=== PATIENT | male | born 1960 | race Caucasian/White ===

== ENCOUNTER → 2016-04-12 | Outpatient (CLI) | payer MEDICARE, OTHER ==
[2016-04-12 14:34] LABS: ALBUMIN 3.8 g/dL (3.5-5.0); BLOOD UREA NITROGEN 15 mg/dL (7-20); CALCIUM 8.7 mg/dL (8.4-10.2); GLUCOSE 84 mg/dL (75-110)
[2016-04-12 14:35] LABS: APPEARANCE,URINE CLEAR; BILIRUBIN,URINE NEGATIVE (NEGATIVE); GLUCOSE, URINE NEGATIVE (NEGATIVE); KETONES,URINE NEGATIVE (NEGATIVE); LEUKOCYTE ESTERASE,URINE SMALL (NEGATIVE); NITRITE,URINE NEGATIVE (NEGATIVE); PROTEIN,URINE NEGATIVE (NEGATIVE); URINE SPECIFIC GRAVITY 1.005; UROBILINOGEN,URINE NEGATIVE mg/dL (<2.0)
[2016-04-12 14:44] LABS: ANION GAP 13 (5-19); CARBON DIOXIDE 28 mmol/L (22-30); CHLORIDE 96 mmol/L (98-107); POTASSIUM 4.6 mmol/L (3.6-5.0); SODIUM 136.6 mmol/L (137-145)
== END ==
LOC: OD 13:05
PROVIDERS: ATTEND Family Medicine
DX: R05 Cough (principal); R60.0 Localized edema; N30.00 Acute cystitis without hematuria
CPT/HCPCS: 36415; 71020; 80048; 81001; 82040; 87086; 87088; 87186

== ENCOUNTER → 2016-04-16 | Outpatient (CLI) | payer MEDICARE, OTHER | LOC: SP 14:51 | PROVIDERS: ATTEND Family Medicine | DX: R60.0 Localized edema (principal) | CPT/HCPCS: 93970 ==

== ENCOUNTER → 2016-05-29 | Outpatient (CLI) | payer MEDICARE, OTHER ==
[2016-05-29 16:11] LABS: ABSOLUTE BASOPHILS # (AUTO) 0.1 10^3/uL (0.0-0.2); ABSOLUTE EOSINOPHILS # (AUTO) 0.4 10^3/uL (0.0-0.6); ABSOLUTE LYMPHOCYTES (AUTO) 1.4 10^3/uL (0.5-4.7); ABSOLUTE MONOCYTES (AUTO) 0.6 10^3/uL (0.1-1.4); ABSOLUTE NEUT (AUTO) 4.3 10^3/uL (1.7-8.2); BASOPHILS % (AUTO) 1.5 % (0-2); EOSINOPHILS % (AUTO) 6.4 % (0-6); HEMATOCRIT 39.5 % (37.9-51.0); HEMOGLOBIN 13.3 g/dL (13.5-17.0); HGB HCT DIFFERENCE 0.4; LYMPHOCYTES % (AUTO) 20.8 % (13-45); MEAN CORPUSCULAR HEMOGLOBIN 29.6 pg (27.0-33.4); MEAN CORPUSCULAR HGB CONC 33.6 g/dL (32.0-36.0); MEAN CORPUSCULAR VOLUME 88 fl (80-97); MONOCYTES % (AUTO) 8.7 % (3-13); RED BLOOD COUNT 4.48 10^6/uL (4.35-5.55); RED CELL DISTRIBUTION WIDTH 14.4 % (11.5-14.0); SEGMENTED NEUTROPHILS % (AUTO) 62.6 % (42-78); WHITE BLOOD COUNT 6.9 10^3/uL (4.0-10.5)
== END ==
LOC: OD 14:32
PROVIDERS: ATTEND Family Medicine
DX: R60.0 Localized edema (principal); R05 Cough; N30.00 Acute cystitis without hematuria
CPT/HCPCS: 36415; 85025

== ENCOUNTER → 2016-06-07 | Day surgery (SDC) | payer MEDICARE, OTHER | LOC: RAD 12:19 → EDSTATUS 16:27 | PROVIDERS: ATTEND Orthopaedic Surgery | PROC: BQ0 Imaging, Non-Axial Lower Bones, Plain Radiography (ICD-10-PCS; principal; 2016-06-07) | DX: M23.307 Other meniscus derangements, unspecified meniscus, left knee (principal); M25.562 Pain in left knee; M25.561 Pain in right knee | CPT/HCPCS: 73580; 77002 ==

== ENCOUNTER → 2016-06-25 | Outpatient (CLI) | payer MEDICARE, OTHER ==
[2016-06-25 11:10] LABS: ABSOLUTE BASOPHILS # (AUTO) 0.1 10^3/uL (0.0-0.2); ABSOLUTE EOSINOPHILS # (AUTO) 0.2 10^3/uL (0.0-0.6); ABSOLUTE LYMPHOCYTES (AUTO) 1.5 10^3/uL (0.5-4.7); ABSOLUTE MONOCYTES (AUTO) 0.6 10^3/uL (0.1-1.4); ABSOLUTE NEUT (AUTO) 5.4 10^3/uL (1.7-8.2); EOSINOPHILS % (AUTO) 2.5 % (0-6); HEMATOCRIT 37.3 % (37.9-51.0); HEMOGLOBIN 12.4 g/dL (13.5-17.0); HGB HCT DIFFERENCE -0.1; MEAN CORPUSCULAR HEMOGLOBIN 29.2 pg (27.0-33.4); MEAN CORPUSCULAR HGB CONC 33.3 g/dL (32.0-36.0); MEAN CORPUSCULAR VOLUME 88 fl (80-97); MONOCYTES % (AUTO) 7.9 % (3-13); RED BLOOD COUNT 4.25 10^6/uL (4.35-5.55); RED CELL DISTRIBUTION WIDTH 15.1 % (11.5-14.0); SEGMENTED NEUTROPHILS % (AUTO) 69.6 % (42-78); WHITE BLOOD COUNT 7.8 10^3/uL (4.0-10.5)
[2016-06-25 11:32] LABS: ALANINE AMINOTRANSFERASE 39 U/L (21-72); ALBUMIN 4.2 g/dL (3.5-5.0); ALKALINE PHOSPHATASE 109 U/L (38-126); ANION GAP 10 (5-19); ASPARTATE AMINO TRANSFERASE 34 U/L (17-59); BILIRUBIN,DIRECT 0.1 mg/dL (0.0-0.4); BILIRUBIN,TOTAL 1.1 mg/dL (0.2-1.3); BLOOD UREA NITROGEN 20 mg/dL (7-20); CALCIUM 9.8 mg/dL (8.4-10.2); CARBON DIOXIDE 29 mmol/L (22-30); CHLORIDE 99 mmol/L (98-107); CHOLESTEROL 135.54 mg/dL (0-200); CREATININE RESULT 1.06 mg/dL (0.52-1.25); Direct HDL 68 mg/dL (>40); GLUCOSE 103 mg/dL (75-110); POTASSIUM 4.6 mmol/L (3.6-5.0); SODIUM 137.6 mmol/L (137-145); TRIGLYCERIDES 54 mg/dL (<150)
[2016-06-25 11:43] LABS: DIRECT LDL 50 mg/dL (<100)
== END ==
LOC: OD 09:59
PROVIDERS: ATTEND Family Medicine
DX: R73.9 Hyperglycemia, unspecified (principal); E78.5 Hyperlipidemia, unspecified; Z79.82 Long term (current) use of aspirin; Z79.899 Other long term (current) drug therapy
CPT/HCPCS: 36415; 80053; 80061; 83036; 84443; 85025

== ENCOUNTER → 2016-08-13 | Outpatient (CLI) | payer MEDICARE, OTHER | LOC: OD 15:43 | PROVIDERS: ATTEND Physician Assistant | DX: M25.551 Pain in right hip (principal) ==

== ENCOUNTER 2016-11-08 12:44 | Emergency (ER) | payer OTHER, MEDICARE ==
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
--- NOTE | 2016-11-08 13:12 | RADIOLOGY REPORT (SQ) ---
EXAM DESCRIPTION: CHEST SINGLE VIEW COMPLETED DATE/TIME: 11/08/2016 12:57 pm REASON FOR STUDY: chest pain COMPARISON: 04/12/2016 EXAM PARAMETERS: NUMBER OF VIEWS: One view. TECHNIQUE: Single frontal radiographic view of the chest acquired. RADIATION DOSE: NA LIMITATIONS: None. FINDINGS: LUNGS AND PLEURA: No opacities, masses or pneumothorax. No pleural effusion. MEDIASTINUM AND HILAR STRUCTURES: No masses. Contour normal. HEART AND VASCULAR STRUCTURES: Cardiomegaly without adalid CHF. There is mild pulmonary vascular ant estion. BONES: No acute findings. HARDWARE: Neural stimulator electrodes. OTHER: No other significant finding. IMPRESSION: Cardiomegaly with pulmonary vascular congestion but no adalid CHF. TECHNICAL DOCUMENTATION: JOB ID: [id number]
[2016-11-08 13:14] LABS: ABSOLUTE BASOPHILS # (AUTO) 0.1 10^3/uL (0.0-0.2); ABSOLUTE EOSINOPHILS # (AUTO) 0.3 10^3/uL (0.0-0.6); ABSOLUTE LYMPHOCYTES (AUTO) 1.2 10^3/uL (0.5-4.7); ABSOLUTE MONOCYTES (AUTO) 0.5 10^3/uL (0.1-1.4); ABSOLUTE NEUT (AUTO) 3.2 10^3/uL (1.7-8.2); BASOPHILS % (AUTO) 1.3 % (0-2); HEMATOCRIT 33.9 % (37.9-51.0); HEMOGLOBIN 11.6 g/dL (13.5-17.0); HGB HCT DIFFERENCE 0.9; LYMPHOCYTES % (AUTO) 23.1 % (13-45); MEAN CORPUSCULAR HEMOGLOBIN 30.7 pg (27.0-33.4); MEAN CORPUSCULAR HGB CONC 34.2 g/dL (32.0-36.0); MEAN CORPUSCULAR VOLUME 90 fl (80-97); MONOCYTES % (AUTO) 8.6 % (3-13); RED BLOOD COUNT 3.79 10^6/uL (4.35-5.55); RED CELL DISTRIBUTION WIDTH 14.5 % (11.5-14.0); WHITE BLOOD COUNT 5.3 10^3/uL (4.0-10.5)
[2016-11-08] MEDS ORDERED: DIPH/PERTUSS(ACELL)/TETANUS VAC/PF 0.5 ML SYR (>=10YO) IM ONE (13:17)
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
[2016-11-08 13:20] LABS: PROTHROMBIN TIME 12.3 SEC (11.4-15.4)
[2016-11-08 13:30] LABS: ALANINE AMINOTRANSFERASE 35 U/L (21-72); ALBUMIN 3.8 g/dL (3.5-5.0); ALKALINE PHOSPHATASE 132 U/L (38-126); ANION GAP 11 (5-19); ASPARTATE AMINO TRANSFERASE 33 U/L (17-59); BILIRUBIN,DIRECT 0.3 mg/dL (0.0-0.4); BILIRUBIN,TOTAL 0.4 mg/dL (0.2-1.3); BLOOD UREA NITROGEN 21 mg/dL (7-20); CARBON DIOXIDE 26 mmol/L (22-30); CHLORIDE 101 mmol/L (98-107); CREATININE RESULT 1.03 mg/dL (0.52-1.25); GLUCOSE 110 mg/dL (75-110); POTASSIUM 3.8 mmol/L (3.6-5.0); SODIUM 137.8 mmol/L (137-145); TOTAL PROTEIN 6.6 g/dL (6.3-8.2)
[2016-11-08 13:32] LABS: ALCOHOL < 10 mg/dL (NONE DETECTED)
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
--- NOTE | 2016-11-08 14:22 | RADIOLOGY REPORT (SQ) ---
EXAM DESCRIPTION: HAND RIGHT 3 VIEWS COMPLETED DATE/TIME: 11/08/2016 1:38 pm REASON FOR STUDY: right hand abrasions COMPARISON: None. EXAM PARAMETERS: NUMBER OF VIEWS: Three views. TECHNIQUE: AP, lateral and oblique radiographic images acquired of the right hand. LIMITATIONS: Bony detail obscured by overlying bandage. FINDINGS: MINERALIZATION: Normal. BONES: No acute fracture or dislocation. No worrisome bone lesions. JOINTS: No effusions. SOFT TISSUES: No soft tissue swelling. No foreign body. OTHER: No other significant finding. IMPRESSION: Limited evaluation due to overlying bandage. No definite evidence of fracture or foreig n body. TECHNICAL DOCUMENTATION: JOB ID: [id number] [employer]- All Rights Reserved
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
[2016-11-08] MEDS ORDERED: LIDOCAINE 1% INJ-PF (10 MG/ML) 30 ML SDV ONE (14:35)
[2016-11-08] MEDS ORDERED: HYDROMORPHONE HCL INJ/PF 2 MG/ML AMPULE IV ONE (15:35)
[2016-11-08 17:48] VITALS: BP 130/79
--- NOTE | 2016-11-09 08:24 | EKG REPORT ---
SEVERITY:- ABNORMAL ECG - SINUS RHYTHM NONSPECIFIC INTRAVENTRICULAR CONDUCTION DELAY : Confirmed by: Denzel Lemos MD 09-Nov-2016 08:23:01
== END 2016-11-08 17:48 | disposition home or self-care (01) ==
LOC: ER 12:44
PROC: 0HQFXZZ Repair Right Hand Skin, External Approach (ICD-10-PCS; principal; 2016-11-08)
DX: S06.0X9A Concussion with loss of consciousness of unspecified duration, initial encounter (principal); S20.219A Contusion of unspecified front wall of thorax, initial encounter; S61.412A Laceration without foreign body of left hand, initial encounter; R51 Headache; V89.2XXA Person injured in unspecified motor-vehicle accident, traffic, initial encounter; F31.9 Bipolar disorder, unspecified; I10 Essential (primary) hypertension; E66.01 Morbid (severe) obesity due to excess calories; M54.9 Dorsalgia, unspecified; G89.29 Other chronic pain; V87.7XXA Person injured in collision between other specified motor vehicles (traffic), initial encounter; F17.200 Nicotine dependence, unspecified, uncomplicated
CPT/HCPCS: 93005; 99291; 99292; 90471; 96374; 36415; 80307; 85025; 85610; 80053; 71010; 73130; 70450; 71260; 72125; 74177; 90715; 93010; 12001; J1170

== ENCOUNTER 2016-11-15 10:03 | Emergency (ER) | payer OTHER, MEDICARE ==
[2016-11-15 10:10] VITALS: BP 129/74
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
== END 2016-11-15 11:17 | disposition home or self-care (01) ==
LOC: ER 10:03
DX: S61.411D Laceration without foreign body of right hand, subsequent encounter (principal); V49.9XXD Car occupant (driver) (passenger) injured in unspecified traffic accident, subsequent encounter; I10 Essential (primary) hypertension; F17.200 Nicotine dependence, unspecified, uncomplicated; Z88.8 Allergy status to other drugs, medicaments and biological substances; Z88.2 Allergy status to sulfonamides; Z88.1 Allergy status to other antibiotic agents

== ENCOUNTER → 2017-03-04 | Outpatient (CLI) | payer OTHER, MEDICARE ==
[2017-03-04 12:34] LABS: ABSOLUTE BASOPHILS # (AUTO) 0.1 10^3/uL (0.0-0.2); ABSOLUTE EOSINOPHILS # (AUTO) 0.3 10^3/uL (0.0-0.6); ABSOLUTE LYMPHOCYTES (AUTO) 0.8 10^3/uL (0.5-4.7); ABSOLUTE MONOCYTES (AUTO) 0.5 10^3/uL (0.1-1.4); ABSOLUTE NEUT (AUTO) 5.3 10^3/uL (1.7-8.2); BASOPHILS % (AUTO) 1.1 % (0-2); EOSINOPHILS % (AUTO) 4.1 % (0-6); HEMATOCRIT 37.2 % (37.9-51.0); HEMOGLOBIN 12.4 g/dL (13.5-17.0); LYMPHOCYTES % (AUTO) 11.7 % (13-45); MEAN CORPUSCULAR HEMOGLOBIN 28.1 pg (27.0-33.4); MEAN CORPUSCULAR HGB CONC 33.4 g/dL (32.0-36.0); MEAN CORPUSCULAR VOLUME 84 fl (80-97); MONOCYTES % (AUTO) 6.9 % (3-13); RED BLOOD COUNT 4.41 10^6/uL (4.35-5.55); RED CELL DISTRIBUTION WIDTH 15.4 % (11.5-14.0); SEGMENTED NEUTROPHILS % (AUTO) 76.2 % (42-78); WHITE BLOOD COUNT 6.9 10^3/uL (4.0-10.5)
[2017-03-04 13:08] LABS: ALANINE AMINOTRANSFERASE 46 U/L (21-72); ALBUMIN 4.1 g/dL (3.5-5.0); ALKALINE PHOSPHATASE 145 U/L (38-126); ANION GAP 10 (5-19); ASPARTATE AMINO TRANSFERASE 46 U/L (17-59); BILIRUBIN,DIRECT 0.4 mg/dL (0.0-0.4); BILIRUBIN,TOTAL 0.9 mg/dL (0.2-1.3); BLOOD UREA NITROGEN 24 mg/dL (7-20); CALCIUM 9.2 mg/dL (8.4-10.2); CARBON DIOXIDE 29 mmol/L (22-30); CHLORIDE 99 mmol/L (98-107); CHOLESTEROL 169.68 mg/dL (0-200); CREATININE RESULT 1.18 mg/dL (0.52-1.25); Direct HDL 83 mg/dL (>40); GLUCOSE 113 mg/dL (75-110); POTASSIUM 4.7 mmol/L (3.6-5.0); SODIUM 137.7 mmol/L (137-145); TOTAL PROTEIN 6.8 g/dL (6.3-8.2); TRIGLYCERIDES 89 mg/dL (<150)
[2017-03-04 13:37] LABS: DIRECT LDL 84 mg/dL (<100)
[2017-03-05 14:36] LABS: ADD ON TESTING BLD IN LAB ACKNOWLEDGE
[2017-03-07 05:40] LABS: HEPATITIS C VIRUS AB 0.1 s/co ratio (0.0-0.9)
== END ==
LOC: OD 11:38
PROVIDERS: ATTEND Family Medicine
DX: Z12.5 Encounter for screening for malignant neoplasm of prostate (principal); Z11.59 Encounter for screening for other viral diseases; D64.9 Anemia, unspecified; R73.9 Hyperglycemia, unspecified; E78.5 Hyperlipidemia, unspecified; Z79.899 Other long term (current) drug therapy
CPT/HCPCS: 36415; 82607; 82728; 82746; 83540; 83550; 84443; 85025; 80053; 83036; 80061; 86803; 86804; G0103

== ENCOUNTER 2017-07-23 08:51 | Day surgery (SDC) | payer MEDICARE, OTHER ==
[2017-07-16 09:41] LABS: APPEARANCE,URINE CLEAR; BILIRUBIN,URINE NEGATIVE (NEGATIVE); COLOR,URINE COLORLESS; GLUCOSE, URINE NEGATIVE (NEGATIVE); KETONES,URINE NEGATIVE (NEGATIVE); LEUKOCYTE ESTERASE,URINE NEGATIVE (NEGATIVE); NITRITE,URINE NEGATIVE (NEGATIVE); PROTEIN,URINE NEGATIVE (NEGATIVE); URINE SPECIFIC GRAVITY 1.004; UROBILINOGEN,URINE NEGATIVE mg/dL (<2.0)
[2017-07-16 10:37] LABS: HEMATOCRIT 40.4 % (37.9-51.0); HEMOGLOBIN 13.4 g/dL (13.5-17.0); MEAN CORPUSCULAR HEMOGLOBIN 28.8 pg (27.0-33.4); MEAN CORPUSCULAR HGB CONC 33.2 g/dL (32.0-36.0); MEAN CORPUSCULAR VOLUME 87 fl (80-97); PLATELET COUNT 223 10^3/uL (150-450); RED BLOOD COUNT 4.65 10^6/uL (4.35-5.55); RED CELL DISTRIBUTION WIDTH 16.3 % (11.5-14.0); WHITE BLOOD COUNT 8.2 10^3/uL (4.0-10.5)
[2017-07-16 10:42] LABS: PROTHROMBIN TIME 12.6 SEC (11.4-15.4)
[2017-07-16 10:43] LABS: PARTIAL THROMBOPLASTIN TIME 28.6 SEC (23.5-35.8)
--- NOTE | 2017-07-16 10:47 | RADIOLOGY REPORT (SQ) ---
EXAM DESCRIPTION: CHEST PA/LATERAL COMPLETED DATE/TIME: 07/16/2017 10:30 am REASON FOR STUDY: PRE OP COMPARISON: Chest films 11/08/2016, 04/12/2016, 07/27/2015 CT chest 11/08/2016 EXAM PARAMETERS: NUMBER OF VIEWS: two views TECHNIQUE: Digital Frontal and Lateral radiographic views of the chest acquired. RADIATION DOSE: NA LIMITATIONS: none FINDINGS: LUNGS AND PLEURA: No opacities, masses or pneumothorax. No pleural effusion. MEDIASTINUM AND HILAR STRUCTURES: No masses or contour abnormalities. Retrocardiac hiatal hernia HEART AND VASCULAR STRUCTURES: Heart normal size. No evidence for failure. BONES: No acute findings. HARDWARE: Neurostimulator electrodes are seen over the mid thoracic spinal canal OTHER: No other significant finding. IMPRESSION: No acute findings TECHNICAL DOCUMENTATION: JOB ID: [id number]- All Rights Reserved Reading location - IP/workstation name: [email or web address]
--- NOTE | 2017-07-16 13:01 | EKG REPORT ---
SEVERITY:- NORMAL ECG - SINUS RHYTHM : Confirmed by: Denzel Lemos MD 16-Jul-2017 13:01:02
[~2017-07-23 08:51] MED LIST: CEFAZOLIN 1 GM/D5W RTU 1 GM/50 ML RTUPB IV PRN; LACTATED RINGERS 1000 ML IV PRN; LIDOCAINE 0.5% INJ-PF (5 MG/ML) 50 ML SDV SUBCUT PRN
[2017-07-23] MEDS ORDERED: ALBUTEROL SULFATE 0.083% NEB 2.5 MG/3 ML AMPUL NEB ONE (09:25)
[2017-07-23] MEDS ORDERED: FAMOTIDINE INJ/PF 20 MG/2 ML SDV IV ONE (09:42)
[2017-07-23] MEDS ORDERED: METOCLOPRAMIDE HCL INJ/PF 10 MG/2 ML SDV ONE (09:43)
[2017-07-23] MEDS ORDERED: SODIUM BICARBONATE 8.4% INJ 50 MEQ/50 ML DISP.SYRIN ONE (09:46)
[2017-07-23] MEDS ORDERED: LIDOCAINE 1% INJ-PF (10 MG/ML) 30 ML SDV ONE ×2 (09:46→12:20)
[2017-07-23] MEDS ORDERED: BUPIVACAINE HCL 0.5%-EPI 1:200000 INJ/PF 30 ML VIAL ONE ×2 (09:46→12:47)
[2017-07-23] MEDS ORDERED: MIDAZOLAM 2 MG/2 ML INJ ONE (11:27)
[2017-07-23] MEDS ORDERED: PROPOFOL INJ 200 MG/20 ML VIAL IV ONE ×2 (11:28→12:24)
[2017-07-23] MEDS ORDERED: DEXMEDETOMIDINE INJ 80 MCG/20 ML VIAL IV ONE (12:58)
[2017-07-23] MEDS ORDERED: CEFAZOLIN INJ 1 GM VIAL ONE (13:50)
[2017-07-23] MEDS ORDERED: OXYCODONE-ACETAMINOPHEN 5-325 MG TABLET PO PRN (14:11)
--- NOTE | 2017-07-23 14:35 | OPERATIVE REPORT E ---
Operative Report NAME: SCOTT SHEA : 1960 AGE: 56Y DATE OF SURGERY: 07/23/2017 ROOM: Spinal cord stimulator revision, removal of old system, implantation of new system. PREOPERATIVE DIAGNOSIS: Nonfunctioning spinal cord stimulator for chronic lumbar radiculopathy. POSTOPERATIVE DIAGNOSIS: Nonfunctioning spinal cord stimulator for chronic lumbar radiculopathy. OPERATION: 1. Removal, prior Epidural Nerve Stimulation spinal cord stimulator system and replacement with Medtronic Dual Lead with *------*. SURGEON: DENNISE BLUE M.D. REPRODUCTION PRODUCTION MANAGER: DR. Wilfredo Montoya ANESTHESIA: Monitored anesthesia care. COMPLICATIONS: None. PROCEDURE DETAIL: After obtaining informed consent, I advised the patient of all the risks and benefits including serious neurological injury, bleeding, infection, spinal fluid leak, allergic reaction, paralysis, nerve injury, , failure to remove the device, and failure to obtain satisfactory relief. He was taken to the operating room and placed comfortably in the prone position. MAC anesthesia was administered. After application of monitoring, he was then prepped with Chloraprep x2 and then draped. After appropriate waiting and drying time, he was evaluated under fluoroscopy. The prior midline incision was marked, the prior left buttock incision was marked, and a new right buttock incision site was marked, and adequate space was found at L1-2 for placement. The skin over both were premarked. The buttock incision for prior battery site on the left and the midline marked with previous scar. Both anesthetized with 1% lidocaine with bicarb followed by 0.25% ropivacaine with epinephrine. Beginning on the left buttock pocket, dissection was done down with removal of the battery without difficulty. It was then closed with a running suture and angel after copious irrigation. Starting with the premarked midline incision, sharp and blunt dissection was performed down to the fascia, looking for the anchors and the prior leads which were identified and removed intact, leads intact and anchors. A 14-gauge Tuohy needle was then placed using a paramedian approach on the left into the L1-2 interspace. Loss of resistance with saline technique was utilized beginning with the first needle. The electrode was advanced under fluoroscopic guidance to the top of T9 being positioned in the midline. The second lead was placed through a second needle using the same technique of loss of resistance using the right paramedian approach on the right side. Final views were taken and initially showed satisfactory placement. The leads were then tested and appropriate stimulation found after discussion with the patient. Once again, the leads were then secured using pursestrings with anchors in place. The anchors were then sutured in place. The needles were removed sequentially, the pursestrings were secured, and the anchor was placed and secured as well. While lead positioning was occurring, Dr. Wilfredo Montoya was assisting me in creating the pocket for the new pulse generator. As soon as the pocket was made, proper hemostasis was confirmed. During dissection, the *------* nerve was identified and spared. After an appropriate pocket was created for the pulse generator, the skin between the tunneling and the pocket was anesthetized with 1% lidocaine and a standard tunneling tool was then used. Both incision sites were felt to be satisfactory and proper hemostasis was confirmed. After appropriate irrigation, the wires were easily placed in the midline and stitched to the pocket and connected to the pulse generator which was then tested and appropriate communication was made. All connections were secure. The generator was then placed in the pocket and assessed and found to be satisfactory. The incision was again checked via fluoroscopy in both lateral and AP views. The wounds were then copiously irrigated. The areas were then closed with interrupted vertical mattress sutures using 3-0 Vicryl. Angel were used in the midline and on both buttock sites. Tape and Dermabond were also used. OpSite dressings were then placed over the tape. The patient was then taken to the PACU for further postoperative care and monitoring. DICTATING PHYSICIAN: DENNISE BLUE M.D. [id number] PHY#: [id number] ID: [id number] JOB#: [id number] ACCT: [id number] cc:DENNISE BLUE M.D. >
[2017-07-23] MEDS ORDERED: KETOROLAC TROMETHAMINE INJ/PF 30 MG/1 ML SDV ONE (14:39)
--- NOTE | 2017-07-23 15:36 | RADIOLOGY REPORT (SQ) ---
EXAM DESCRIPTION: NO CHG FLUORO; THORACOLUMBAR SPINE AP/LAT COMPLETED DATE/TIME: 07/23/2017 3:21 pm REASON FOR STUDY: SPINAL STIMULATOR ASST WITH FLUORO IN OR COMPARISON: None. FLUOROSCOPY TIME: 5.4 minutes 21 Images saved to PACS LIMITATIONS: None. PROCEDURE: Placement of neural stimulator electrodes FINDINGS: Images obtained with fluoro document the placement of neurostimulator electrodes in the mi d to lower thoracic spine. IMPRESSION: Neurostimulator electrode placement. COMMENT: PQRS 6045F: Fluoroscopy time of the procedure is documented in the report. TECHNICAL DOCUMENTATION: JOB ID: [id number] [employer]- All Rights Reserved Reading location - IP/workstation name: [email or web address]
--- NOTE | 2017-07-23 15:36 | RADIOLOGY REPORT (SQ) ---
EXAM DESCRIPTION: NO CHG FLUORO; THORACOLUMBAR SPINE AP/LAT COMPLETED DATE/TIME: 07/23/2017 3:21 pm REASON FOR STUDY: SPINAL STIMULATOR ASST WITH FLUORO IN OR COMPARISON: None. FLUOROSCOPY TIME: 5.4 minutes 21 Images saved to PACS LIMITATIONS: None. PROCEDURE: Placement of neural stimulator electrodes FINDINGS: Images obtained with fluoro document the placement of neurostimulator electrodes in the mi d to lower thoracic spine. IMPRESSION: Neurostimulator electrode placement. COMMENT: PQRS 6045F: Fluoroscopy time of the procedure is documented in the report. TECHNICAL DOCUMENTATION: JOB ID: [id number] [employer]- All Rights Reserved Reading location - IP/workstation name: [email or web address]
[2017-07-23 16:16] VITALS: BP 117/72
== END 2017-07-23 15:45 | disposition home or self-care (01) ==
LOC: OROUT 08:51
PROVIDERS: ATTEND Student in an Organized Health Care Education/Training Program
DX: M54.17 Radiculopathy, lumbosacral region (principal); I10 Essential (primary) hypertension; M76.899 Other specified enthesopathies of unspecified lower limb, excluding foot; M25.511 Pain in right shoulder; M25.551 Pain in right hip; M25.512 Pain in left shoulder; E66.8 Other obesity; F39 Unspecified mood [affective] disorder; F45.42 Pain disorder with related psychological factors; M79.1 Myalgia; G89.4 Chronic pain syndrome; G47.33 Obstructive sleep apnea (adult) (pediatric); J45.909 Unspecified asthma, uncomplicated; Z79.01 Long term (current) use of anticoagulants; Z79.1 Long term (current) use of non-steroidal anti-inflammatories (NSAID); Z79.899 Other long term (current) drug therapy; Z79.51 Long term (current) use of inhaled steroids; Z79.891 Long term (current) use of opiate analgesic; Z86.73 Personal history of transient ischemic attack (TIA), and cerebral infarction without residual deficits; Z68.38 Body mass index [BMI] 38.0-38.9, adult
CPT/HCPCS: 63650; 63685; C1820; 1936; 36415; 71046; 72080; 81001; 84132; 85027; 85610; 85730; 93005; 93010; 94640; C1778; J0690; J1885; J2250; J2704; J2765; J3490; S0028

== ENCOUNTER → 2017-10-04 | Outpatient (CLI) | payer MEDICARE, OTHER | LOC: OD 10:54 | PROVIDERS: ATTEND Urology | DX: N52.9 Male erectile dysfunction, unspecified (principal) | CPT/HCPCS: 36415; 84402; 84403 ==

== ENCOUNTER 2017-10-28 05:12 | Day surgery (SDC) | payer MEDICARE, OTHER ==
[2017-10-25 12:53] LABS: HEMATOCRIT 35.6 % (37.9-51.0); HEMOGLOBIN 12.1 g/dL (13.5-17.0); MEAN CORPUSCULAR HEMOGLOBIN 30.9 pg (27.0-33.4); MEAN CORPUSCULAR HGB CONC 34.1 g/dL (32.0-36.0); MEAN CORPUSCULAR VOLUME 91 fl (80-97); PLATELET COUNT 182 10^3/uL (150-450); RED BLOOD COUNT 3.92 10^6/uL (4.35-5.55); RED CELL DISTRIBUTION WIDTH 14.9 % (11.5-14.0); WHITE BLOOD COUNT 7.2 10^3/uL (4.0-10.5)
[2017-10-25 13:09] LABS: ANION GAP 12 (5-19); BLOOD UREA NITROGEN 20 mg/dL (7-20); CALCIUM 9.2 mg/dL (8.4-10.2); CARBON DIOXIDE 29 mmol/L (22-30); CHLORIDE 98 mmol/L (98-107); GLUCOSE 77 mg/dL (75-110); POTASSIUM 4.2 mmol/L (3.6-5.0); SODIUM 138.8 mmol/L (137-145)
[2017-10-25 13:38] LABS: ERYTHROCYTE SEDIMENTATION RATE 35 mm/hr (0-20)
--- NOTE | 2017-10-25 22:15 | EKG REPORT ---
SEVERITY:- NORMAL ECG - SINUS RHYTHM : Confirmed by: Viktoriya Soni 25-Oct-2017 22:14:55
[~2017-10-28 05:12] MED LIST changes: -CEFAZOLIN 1 GM/D5W RTU 1 GM/50 ML RTUPB IV PRN; +CEFAZOLIN 2 GM/D5W RTU 2 GM/50 ML RTUPB IV PRN
--- NOTE | 2017-10-28 06:44 | RADIOLOGY REPORT (SQ) ---
Chest single view on 10/28/2017 at 5:48 AM CLINICAL INDICATION: Preop left ankle fracture fixation COMPARISON: 07/16/2017 FINDINGS: Mild cardiomegaly is noted. Stimulator leads overlie the lower thoracic spine. The lungs are clear. Hilar and mediastinal contours are within normal limits. Pulmonary vascularity is within normal limits. IMPRESSION: No acute disease.
[2017-10-28] MEDS ORDERED: LIDOCAINE 2% INJ-PF (20 MG/ML) 10 ML AMPUL ONE (07:00)
[2017-10-28] MEDS ORDERED: MIDAZOLAM 2 MG/2 ML INJ ONE (07:00)
[2017-10-28] MEDS ORDERED: ONDANSETRON HCL INJ/PF 4 MG/2 ML SDV ONE (07:00)
[2017-10-28] MEDS ORDERED: DEXAMETHASONE SOD PHOSPHATE INJ 4 MG/1 ML VIAL ONE (07:00)
[2017-10-28] MEDS ORDERED: FENTANYL CITRATE INJ/PF 100 MCG/2 ML AMPUL ONE (07:00)
[2017-10-28] MEDS ORDERED: PROPOFOL INJ 200 MG/20 ML VIAL IV ONE (07:01)
[2017-10-28] MEDS ORDERED: ACETAMINOPHEN 1,000 MG/100 ML RTUPB IV ONE (07:01)
[2017-10-28] MEDS ORDERED: MORPHINE SULFATE 10 MG/ML INJ ONE (07:01)
[2017-10-28] MEDS ORDERED: BUPIVACAINE HCL 0.25% /EPINEPHRINE INJ/PF 30 ML SDV ONE (07:31)
[2017-10-28] MEDS ORDERED: MEPERIDINE HCL/PF INJ 25 MG/1 ML DISP.SYRIN IV PRN (08:02)
[2017-10-28] MEDS ORDERED: MORPHINE SULFATE 10 MG/ML INJ IV PRN (08:02)
[2017-10-28] MEDS ORDERED: ONDANSETRON HCL INJ/PF 4 MG/2 ML SDV IV PRN (08:02)
[2017-10-28] MEDS ORDERED: DIPHENHYDRAMINE HCL 50 MG/ML VIAL IV PRN (08:02)
[2017-10-28] MEDS ORDERED: OXYCODONE-ACETAMINOPHEN 5-325 MG TABLET PO PRN ×2 (08:02)
[2017-10-28] MEDS ORDERED: FENTANYL CITRATE INJ/PF 100 MCG/2 ML AMPUL IV PRN ×3 (08:02)
[2017-10-28] MEDS ORDERED: PROMETHAZINE HCL INJ 25 MG/1 ML VIAL IV PRN ×2 (08:02)
--- NOTE | 2017-10-28 08:17 | Discharge Summary ---
Discharge Summary (SDC) - Discharge Final Diagnosis: Left lateral malleolus fracture Date of Surgery: 10/28/17 Discharge Date: 10/28/17 Condition: Good Treatment or Instructions: Touchdown weightbearing left lower extremity Prescriptions: Oxycodone HCl [Oxaydo] 5 mg PO Q6 PRN #40 tablet.orl PRN Reason: Referrals: LUCIANO BIANCHI MD [Primary Care Provider] - Discharge Diet: As Tolerated, Regular Respiratory Treatments at Home: Deep Breathing/Coughing, Incentive Spirometer Discharge Activity: Other - Touchdown weightbearing left lower extremity Home Care Assistance: None Needed Report the Following to Your Physician Immediately: Shortness of Breath, Fever over 101 Degrees, Drainage-Foul Smelling
--- NOTE | 2017-10-28 08:18 | Operative Report ---
Operative Report DATE OF SURGERY: 10/28/17 PREOPERATIVE DIAGNOSIS: Left lateral malleolus fracture OPERATION: Open reduction internal fixation left lateral malleolus fracture SURGEON: MARCELA KITCHEN ANESTHESIA: GA ESTIMATED BLOOD LOSS: 25 PROCEDURE: With the patient supine on the operative table the left lower extremities prepped and draped in a sterile fashion. It is elevated for exsanguination tourniquet inflated 280 torr. Longitudinal incisions made over the distal fibula and sharp dissection was carried incision through the periosteum. The periosteum was elevated and the underlying fracture was easily identified. Its reduced under direct visualization and reduction was checked with fluoroscopy in both directions. Subsequently Dewitt titanium distal fibular 6-hole plate is applied to the lateral surface of the fibula and secured with 4 screws proximally and 4 screws distally. The fracture reduction and the hardware placement checked fluoroscopically and felt to be adequate. The tourniquet is deflated. Hemostasis obtained with electrocautery. The wound is irrigated with bulb lavage. Subsequent closure was interrupted Vicryl followed by wood. A sterile compressive dressing and a Cam walker applied and the patient's return to PACU in satisfactory condition.
[2017-10-28] MEDS: HYDROMORPHONE HCL INJ/PF 2 MG/ML AMPULE ONE ×2 (08:31→08:55)
[2017-10-28] MEDS ORDERED: SUCCINYLCHOLINE CHLORIDE INJ 200 MG/10 ML VIAL ONE (10:22)
[2017-10-28 11:34] VITALS: BP 136/84
== END 2017-10-28 11:00 | disposition home or self-care (01) ==
LOC: OROUT 05:12
PROVIDERS: ATTEND Orthopaedic Surgery
DX: S82.62XA Displaced fracture of lateral malleolus of left fibula, initial encounter for closed fracture (principal); X58.XXXA Exposure to other specified factors, initial encounter; I10 Essential (primary) hypertension; E66.9 Obesity, unspecified; E88.81 Metabolic syndrome and other insulin resistance; Z87.891 Personal history of nicotine dependence; Z88.8 Allergy status to other drugs, medicaments and biological substances; Z79.899 Other long term (current) drug therapy; Z68.38 Body mass index [BMI] 38.0-38.9, adult; I69.354 Hemiplegia and hemiparesis following cerebral infarction affecting left non-dominant side; I69.328 Other speech and language deficits following cerebral infarction
CPT/HCPCS: 93005; 36415 ×2; 84132; 85027; 85652; 80048; 73600; 71045; 93010; 27792; C1713 ×6; J2250; J3490 ×2; J1100; J3010; J2270; A9270; J1170; J0330; J2405; J2704; J0690; J0131; 01480

== ENCOUNTER 2017-11-24 20:24 | Emergency (ER) | payer MEDICARE, OTHER ==
[2017-11-24] MEDS ORDERED: CEPHALEXIN 500 MG CAPSULE PO ONE (20:58)
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
[2017-11-24 21:23] VITALS: BP 130/88
== END 2017-11-24 21:19 | disposition home or self-care (01) ==
LOC: ER 20:24
DX: T81.31XA Disruption of external operation (surgical) wound, not elsewhere classified, initial encounter (principal); Y83.8 Other surgical procedures as the cause of abnormal reaction of the patient, or of later complication, without mention of misadventure at the time of the procedure; L03.116 Cellulitis of left lower limb; I10 Essential (primary) hypertension; I69.954 Hemiplegia and hemiparesis following unspecified cerebrovascular disease affecting left non-dominant side; Z87.891 Personal history of nicotine dependence; Z86.14 Personal history of Methicillin resistant Staphylococcus aureus infection; Z88.2 Allergy status to sulfonamides
CPT/HCPCS: 99283; A9270

== ENCOUNTER → 2018-02-24 | Outpatient (CLI) | payer MEDICARE, OTHER ==
[2018-02-24 16:53] LABS: ABSOLUTE BASOPHILS # (AUTO) 0.1 10^3/uL (0.0-0.2); ABSOLUTE EOSINOPHILS # (AUTO) 0.3 10^3/uL (0.0-0.6); ABSOLUTE LYMPHOCYTES (AUTO) 1.2 10^3/uL (0.5-4.7); ABSOLUTE MONOCYTES (AUTO) 0.6 10^3/uL (0.1-1.4); ABSOLUTE NEUT (AUTO) 3.4 10^3/uL (1.7-8.2); BASOPHILS % (AUTO) 1.3 % (0-2); HEMOGLOBIN 12.1 g/dL (13.5-17.0); MEAN CORPUSCULAR HEMOGLOBIN 29.5 pg (27.0-33.4); MEAN CORPUSCULAR HGB CONC 33.7 g/dL (32.0-36.0); MEAN CORPUSCULAR VOLUME 88 fl (80-97); MONOCYTES % (AUTO) 10.5 % (3-13); PLATELET COUNT 194 10^3/uL (150-450); RED CELL DISTRIBUTION WIDTH 15.7 % (11.5-14.0); SEGMENTED NEUTROPHILS % (AUTO) 61.2 % (42-78); TOTAL CELLS COUNTED % (AUTO) 100 %; WHITE BLOOD COUNT 5.5 10^3/uL (4.0-10.5)
[2018-02-24 17:45] LABS: ERYTHROCYTE SEDIMENTATION RATE 26 mm/hr (0-20)
== END ==
LOC: OD 15:28
PROVIDERS: ATTEND Pain Medicine Interventional Pain Medicine
DX: M06.89 Other specified rheumatoid arthritis, multiple sites (principal)
CPT/HCPCS: 36415; 85025; 85652; 86140; 86430

== ENCOUNTER → 2018-04-23 | Outpatient (CLI) | payer MEDICARE, OTHER ==
[2018-04-23 17:22] LABS: ANION GAP 7 (5-19); BLOOD UREA NITROGEN 29 mg/dL (7-20); CALCIUM 9.4 mg/dL (8.4-10.2); CARBON DIOXIDE 30 mmol/L (22-30); CHLORIDE 99 mmol/L (98-107); GLUCOSE 104 mg/dL (75-110); POTASSIUM 4.2 mmol/L (3.6-5.0); SODIUM 135.5 mmol/L (137-145)
== END ==
LOC: OD 15:43
PROVIDERS: ATTEND Family Medicine
DX: N40.1 Benign prostatic hyperplasia with lower urinary tract symptoms (principal); Z12.5 Encounter for screening for malignant neoplasm of prostate; R60.0 Localized edema
CPT/HCPCS: 36415; 80048; 84153

== ENCOUNTER → 2018-05-21 | Outpatient (CLI) | payer MEDICARE, OTHER ==
[2018-05-21 12:25] LABS: ANION GAP 9 (5-19); BLOOD UREA NITROGEN 26 mg/dL (7-20); CALCIUM 9.4 mg/dL (8.4-10.2); CARBON DIOXIDE 30 mmol/L (22-30); CHLORIDE 99 mmol/L (98-107); GLUCOSE 144 mg/dL (75-110); POTASSIUM 4.6 mmol/L (3.6-5.0)
== END ==
LOC: OD 10:58
PROVIDERS: ATTEND Family Medicine
DX: R76.0 Raised antibody titer (principal); R60.0 Localized edema
CPT/HCPCS: 36415; 80048; 86038

== ENCOUNTER → 2019-03-16 | Outpatient (CLI) | payer MEDICARE, OTHER ==
--- NOTE | 2019-03-17 08:54 | RADIOLOGY REPORT (SQ) ---
EXAM DESCRIPTION: U/S EXTREMITY NONVASCULAR LTD COMPLETED DATE/TIME: 03/16/2019 5:34 pm REASON FOR STUDY: SOFT TISSUE MASS (R22.31) R22.31 LOCALIZED SWELLING, MASS AND LUMP, RIGHT UPPER L IMB COMPARISON: None. TECHNIQUE: Dynamic and static grayscale images acquired of the localized site of clinical concern an d recorded on PACS. Additional selected color Doppler and spectral images recorded. SITE OF CONCERN: Right biceps area LIMITATIONS: None. FINDINGS: SKIN AND SUBCUTANEOUS TISSUES: No masses. No fluid collections. No edema. No foreign elizabeth s. DEEP SOFT TISSUES/MUSCLES: No masses. No fluid collections. No edema. VASCULAR: Palpable abnormality corresponds to a prominent vein along the right biceps. No evidence i ntraluminal clot. OTHER: No other significant finding. IMPRESSION: Palpable abnormality corresponds to a prominent vein along the right biceps, likely ceph alic. TECHNICAL DOCUMENTATION: JOB ID: [id number] [email or web address]- All Rights Reserved Reading location - IP/workstation name: [email or web address]
== END ==
LOC: RAD 14:34
PROVIDERS: ATTEND Family Medicine
DX: R22.31 Localized swelling, mass and lump, right upper limb (principal)
CPT/HCPCS: 76882

== ENCOUNTER → 2019-07-02 | Outpatient (CLI) | payer MEDICARE, OTHER ==
--- NOTE | 2019-07-02 10:11 | RADIOLOGY REPORT (SQ) ---
EXAM DESCRIPTION: CHEST 2 VIEWS COMPLETED DATE/TIME: 07/02/2019 9:55 am REASON FOR STUDY: J15.212 PNEUMONIA DUE TO METHICILLIN RESISTANT STAPHYLOCOCCUS AUREUS COMPARISON: 04/12/2016 EXAM PARAMETERS: NUMBER OF VIEWS: two views TECHNIQUE: Digital Frontal and Lateral radiographic views of the chest acquired. RADIATION DOSE: NA LIMITATIONS: none FINDINGS: LUNGS AND PLEURA: No opacities, masses or pneumothorax. No pleural effusion. MEDIASTINUM AND HILAR STRUCTURES: No masses or contour abnormalities. HEART AND VASCULAR STRUCTURES: Heart normal size. No evidence for failure. BONES: No acute findings. HARDWARE: None in the chest. Neurostimulator overlies the lower dorsal spine. OTHER: No other significant finding. IMPRESSION: NO ACUTE RADIOGRAPHIC FINDING IN THE CHEST. TECHNICAL DOCUMENTATION: JOB ID: [id number] [employer]- All Rights Reserved Reading location - IP/workstation name: [email or web address]
--- NOTE | 2019-07-02 10:45 | RADIOLOGY REPORT (SQ) ---
EXAM DESCRIPTION: CT FACIAL AREA WITHOUT COMPLETED DATE/TIME: 07/02/2019 9:50 am REASON FOR STUDY: J01.30 ACUTE SPHENOIDAL SINUSITIS, UNSPECIFIED J01.30 ACUTE SPHENOIDAL SINUSITIS, UNSPECIFIED COMPARISON: CT brain 02/09/2017 TECHNIQUE: Noncontrast scanning through the paranasal sinuses using bone algorithm. Reconstructed MPR images reviewed. All images stored on PACS. All CT scanners at this facility use dose modulation, iterative reconstruction, and/or weight based d osing when appropriate to reduce radiation dose to as low as reasonably achievable (ALARA). [facility]: Dose Right [facility]: CareDose [facility]: Dose Right [facility]: Teradose 4D [facility]: [employer] RADIATION DOSE: 45 mGy LIMITATIONS: None. FINDINGS: Right sinuses and drainage pathways: Post-surgical changes: None. Frontal sinus: Normal. Frontoethmoidal Recess: Normal. Anterior Ethmoid Sinuses: Normal. Posterior Ethmoid Sinuses: Normal. Sphenoid Sinus: Normal. Sphenoethmoidal Recess: Normal. Maxillary Sinus: Normal. Ostiomeatal Complex: Normal. Left Sinuses and Drainage Pathways: Post-Surgical Changes: None. Frontal Sinus: Normal. Frontoethmoidal Recess: Normal. Anterior Ethmoid Sinuses: Normal. Posterior Ethmoid Sinuses: Normal. Sphenoid Sinus: Normal. Sphenoethmoidal Recess: Normal. Maxillary Sinus: Circumferential mild mucous membrane thickening Ostiomeatal Complex: Narrowed by mucous membrane thickening on coronal images 24-28. Right Olfactory Fossa: No polyps. Left Olfactory Fossa: No polyps. Middle Turbinate Maritaz Bullosa: No. Paradoxical Middle Turbinate: No. Atelectatic Uncinated Process: No. Frontal Inga Cell Type I: No. Frontal Inga Cell Type II: No. Interfrontal Sinus Septal Cell: None. Supra-Orbital Ethmoid: None. Frontal Bullar Cell: None. Suprabullar Bullar Cell: None. Sphenoethmoidal (Onodi) Cell: None. Pneumatization of the Anterior Clinoid Processes: no Hypoplastic Maxillary Sinus: None. Osteoneogenesis: None. Bone Dehiscence:None. Nasal Cavity: Normal. Nasal Septum: Mild leftward nasal septal deviation Anatomic Variants: Right Vidian Canal: Normal. Left Vidian Canal: Normal. IMPRESSION: Mild inflammatory change left maxillary sinus TECHNICAL DOCUMENTATION: JOB ID: [id number] Quality ID # [id number]: Final reports with documentation of one or more dose reduction techniques (e.g., Au tomated exposure control, adjustment of the mA and/or kV according to patient size, use of iterative reconstruction technique) 2010 [employer]- All Rights Reserved Reading location - IP/workstation name: [email or web address]
== END ==
LOC: RAD 09:40
PROVIDERS: ATTEND Family Medicine
DX: J15.212 Pneumonia due to Methicillin resistant Staphylococcus aureus (principal); J01.30 Acute sphenoidal sinusitis, unspecified
CPT/HCPCS: 70486; 71046

== ENCOUNTER → 2019-07-02 | Outpatient (CLI) | payer MEDICARE, OTHER ==
[2019-07-02 10:51] LABS: ABSOLUTE BASOPHILS # (AUTO) 0.1 10^3/uL (0.0-0.2); ABSOLUTE EOSINOPHILS # (AUTO) 0.2 10^3/uL (0.0-0.6); ABSOLUTE LYMPHOCYTES (AUTO) 0.8 10^3/uL (0.5-4.7); ABSOLUTE MONOCYTES (AUTO) 0.4 10^3/uL (0.1-1.4); ABSOLUTE NEUT (AUTO) 3.9 10^3/uL (1.7-8.2); BASOPHILS % (AUTO) 1.3 % (0-2); EOSINOPHILS % (AUTO) 4.1 % (0-6); HEMATOCRIT 34.4 % (37.9-51.0); HEMOGLOBIN 11.9 g/dL (13.5-17.0); LYMPHOCYTES % (AUTO) 14.8 % (13-45); MEAN CORPUSCULAR HEMOGLOBIN 31.5 pg (27.0-33.4); MEAN CORPUSCULAR HGB CONC 34.7 g/dL (32.0-36.0); MEAN CORPUSCULAR VOLUME 91 fl (80-97); PLATELET COUNT 225 10^3/uL (150-450); RED CELL DISTRIBUTION WIDTH 14.4 % (11.5-14.0); SEGMENTED NEUTROPHILS % (AUTO) 72.8 % (42-78); TOTAL CELLS COUNTED % (AUTO) 100 %; WHITE BLOOD COUNT 5.4 10^3/uL (4.0-10.5)
[2019-07-02 11:11] LABS: ANION GAP 7 (5-19); BLOOD UREA NITROGEN 12 mg/dL (7-20); CARBON DIOXIDE 28 mmol/L (22-30); CHLORIDE 102 mmol/L (98-107); GLUCOSE 143 mg/dL (75-110); POTASSIUM 4.2 mmol/L (3.6-5.0)
== END ==
LOC: OD 10:11
PROVIDERS: ATTEND Family Medicine
DX: E87.6 Hypokalemia (principal); J15.212 Pneumonia due to Methicillin resistant Staphylococcus aureus
CPT/HCPCS: 36415; 80048; 85025; 87070; 87205

== ENCOUNTER → 2019-11-14 | Outpatient (CLI) | payer MEDICARE, OTHER ==
--- NOTE | 2019-11-14 12:12 | RADIOLOGY REPORT (SQ) ---
EXAM DESCRIPTION: CT RT UPPER EXTREMITY WITHOUT IMAGES COMPLETED DATE/TIME: 11/14/2019 11:04 am REASON FOR STUDY: (R22.31)LOCALIZED SWELLING, MASS AND LUMP, RIGHT UPPER LIMB COMPARISON: None. TECHNIQUE: Axial imaging performed through the Right humerus with reformatted coronal and sagittal imaging windowed for bone and soft tissues. Images saved to PAC S. 3D IMAGING: Were 3D images as MIP, SSD, or volume rendering performed at the work station? No LIMITATIONS: None. FINDINGS: SOFT TISSUES: No mass, swelling or foreign body. BONY STRUCTURES: No fracture or aggressive bone lesion. MINERALIZATION: Normal. OTHER: No other significant finding. IMPRESSION: NO ACUTE OR SIGNIFICANT FINDING. Reading location - IP/workstation name: [email or web address]
== END ==
LOC: RAD 10:01
PROVIDERS: ATTEND Family Medicine
DX: R22.31 Localized swelling, mass and lump, right upper limb (principal)

== ENCOUNTER → 2020-01-15 | Outpatient (CLI) | payer MEDICARE, OTHER ==
--- NOTE | 2020-01-15 12:17 | RADIOLOGY REPORT (SQ) ---
EXAM DESCRIPTION: TOE LEFT IMAGES COMPLETED DATE/TIME: 01/15/2020 11:30 am REASON FOR STUDY: CELLULITIS OF LEFT TOE G44.52 NEW DAILY PERSISTENT HEADACHE ([facility]) COMPARISON: None. NUMBER OF VIEWS: Three views. TECHNIQUE: AP, lateral, and oblique images acquired of the left first toe. LIMITATIONS: None. FINDINGS: MINERALIZATION: Normal. BONES: There is a fracture involving the base of the 1st distal phalanx. This does involve the joint surface. JOINTS: No effusions. SOFT TISSUES: No soft tissue swelling. No foreign body. OTHER: No other significant finding. IMPRESSION: 1st distal phalanx fracture. COMMENT: SITE OF TRAUMA/COMPLAINT MARKED/STAMP COMPLETED: Yes TECHNICAL DOCUMENTATION: JOB ID: [id number] 2010 [employer]- All Rights Reserved Reading location - IP/workstation name: [email or web address]
--- NOTE | 2020-01-15 12:19 | RADIOLOGY REPORT (SQ) ---
EXAM DESCRIPTION: CT HEAD COMBO IMAGES COMPLETED DATE/TIME: 01/15/2020 11:39 am REASON FOR STUDY: G44.52 NEW DAILY PERSISTENT HEADACHE ([facility]) G44.52 NEW DAILY PERSISTENT HEADACHE ([facility]) COMPARISON: 02/09/2017 TECHNIQUE: Axial images acquired through the brain without and with intravenous contrast. Images re viewed with bone, brain and subdural windows. Images stored on PACS. All CT scanners at this facility use dose modulation, iterative reconstruction, and/or weight based d osing when appropriate to reduce radiation dose to as low as reasonably achievable (ALARA). [facility]: Dose Right [facility]: CareDose [facility]: Dose Right [facility]: Teradose 4D [facility]: [employer] CONTRAST TYPE AND DOSE: contrast/concentration: Isovue 350.00 mmol/ml; Total Contrast Delivered: 50. 0 ml; Total Saline Delivered: 55.0 ml RENAL FUNCTION: GFR > 60. RADIATION DOSE: CT Rad equipment meets quality standard of care and radiation dose reduction techniq ues were employed. CTDIvol: 48.5 - 48.6 mGy. DLP: 1808 mGy-cm.. LIMITATIONS: None. FINDINGS: VENTRICLES: Normal size and contour. CEREBRUM: No masses. No hemorrhage. No midline shift. Normal cordero/white matter differentiation. No ev idence for acute infarction. No enhancing lesions. CEREBELLUM: No masses. No hemorrhage. No alteration of density. No evidence for acute infarction. No enhancing lesions. EXTRA-AXIAL SPACES: No fluid collections. No enhancing lesions. ORBITS AND GLOBE: No intra- or extraconal masses. Normal contour of globe without masses. CALVARIUM: No fracture. PARANASAL SINUSES: No fluid or mucosal thickening. SOFT TISSUES: No mass or hematoma. OTHER: No other significant finding. IMPRESSION: No enhancing lesions. Age-appropriate exam. EVIDENCE OF ACUTE STROKE: NO. TECHNICAL DOCUMENTATION: JOB ID: [id number] Quality ID # [id number]: Final reports with documentation of one or more dose reduction techniques (e.g., Au tomated exposure control, adjustment of the mA and/or kV according to patient size, use of iterative reconstruction technique) 2010 [employer]- All Rights Reserved Reading location - IP/workstation name: [email or web address]
== END ==
LOC: RAD 10:16
PROVIDERS: ATTEND Family Medicine
DX: G44.52 New daily persistent headache (NDPH) (principal); S92.532A Displaced fracture of distal phalanx of left lesser toe(s), initial encounter for closed fracture; X58.XXXA Exposure to other specified factors, initial encounter; L03.031 Cellulitis of right toe
CPT/HCPCS: 70470; 82565

== ENCOUNTER → 2020-01-28 | Outpatient (CLI) | payer MEDICARE, OTHER ==
[2020-01-28 08:11] LABS: ABSOLUTE BASOPHILS # (AUTO) 0.1 10^3/uL (0.0-0.2); ABSOLUTE EOSINOPHILS # (AUTO) 0.3 10^3/uL (0.0-0.6); ABSOLUTE LYMPHOCYTES (AUTO) 1.5 10^3/uL (0.5-4.7); ABSOLUTE MONOCYTES (AUTO) 0.6 10^3/uL (0.1-1.4); ABSOLUTE NEUT (AUTO) 3.5 10^3/uL (1.7-8.2); BASOPHILS % (AUTO) 1.3 % (0-2); EOSINOPHILS % (AUTO) 5.7 % (0-6); HEMATOCRIT 34.1 % (37.9-51.0); HEMOGLOBIN 11.3 g/dL (13.5-17.0); LYMPHOCYTES % (AUTO) 25.3 % (13-45); MEAN CORPUSCULAR HEMOGLOBIN 28.3 pg (27.0-33.4); MEAN CORPUSCULAR HGB CONC 33.3 g/dL (32.0-36.0); MEAN CORPUSCULAR VOLUME 85 fl (80-97); MONOCYTES % (AUTO) 9.4 % (3-13); PLATELET COUNT 225 10^3/uL (150-450); RED BLOOD COUNT 4.01 10^6/uL (4.35-5.55); SEGMENTED NEUTROPHILS % (AUTO) 58.3 % (42-78); TOTAL CELLS COUNTED % (AUTO) 100 %
[2020-01-28 08:37] LABS: ALKALINE PHOSPHATASE 108 U/L (38-126); ANION GAP 8 (5-19); ASPARTATE AMINO TRANSFERASE 44 U/L (17-59); BILIRUBIN,DIRECT 0.3 mg/dL (0.0-0.4); BILIRUBIN,TOTAL 0.6 mg/dL (0.2-1.3); BLOOD UREA NITROGEN 18 mg/dL (7-20); CALCIUM 9.1 mg/dL (8.4-10.2); CARBON DIOXIDE 29 mmol/L (22-30); CHLORIDE 102 mmol/L (98-107); CHOLESTEROL 119.28 mg/dL (0-200); GLUCOSE 105 mg/dL (75-110); POTASSIUM 4.5 mmol/L (3.6-5.0); TOTAL PROTEIN 6.8 g/dL (6.3-8.2); TRIGLYCERIDES 68 mg/dL (<150)
[2020-01-28 08:48] LABS: DIRECT LDL 46 mg/dL (<100)
[2020-01-28 09:22] LABS: ERYTHROCYTE SEDIMENTATION RATE 18 mm/hr (0-20)
== END ==
LOC: OD 07:38
PROVIDERS: ATTEND Family Medicine
DX: E78.5 Hyperlipidemia, unspecified (principal); E87.6 Hypokalemia; G44.52 New daily persistent headache (NDPH)
CPT/HCPCS: 36415; 80053; 80061; 83735; 85025; 85652